=== PATIENT | male | born 1965 | race Caucasian/White ===

== ENCOUNTER 2017-12-12 16:11 | Emergency (ER) | payer OTHER ==
--- NOTE | 2017-12-12 16:56 | EDPHY ---
H & P Stated Complaint: SOB with cough sent from for full eval. Time Seen by Provider: 12/12/17 16:56 HPI/ROS: CHIEF COMPLAINT: Dyspnea HISTORY OF PRESENT ILLNESS: The patient presents to the ED with complaints of dyspnea and a dry nonproductive cough for the past several weeks. The patient has a remote history childhood asthma. He does use albuterol occasionally. He has been using at sporadically over the past several weeks with minimal improvement. The patient went to urgent care today requesting a steroid inhaler and had a EKG performed which demonstrated a right bundle branch block. The patient was referred to the ED for further evaluation. The patient denies any history of exertional chest pain. He has no complaints of pleuritic chest pain. He denies asymmetric calf pain or swelling. The patient has no additional acute medical complaints. REVIEW OF SYSTEMS: A comprehensive 10 point review of systems is otherwise negative aside from elements mentioned in the history of present illness. Source: Patient Exam Limitations: No limitations - Personal History Current Tetanus Diphtheria and Acellular Pertussis (TDAP): Yes - Medical/Surgical History Hx Asthma: Yes Hx Chronic Respiratory Disease: No Hx Diabetes: No Hx Cardiac Disease: No Hx Renal Disease: No Hx Cirrhosis: No Hx Alcoholism: No Hx HIV/AIDS: No Hx Splenectomy or Spleen Trauma: No Other PMH: asthma, htn, BPH. appendectomy - Social History Smoking Status: Never smoked - Physical Exam Exam: General Appearance: Alert, no distress Eyes: Pupils equal and round no pallor or injection ENT, Mouth: Mucous membranes moist Respiratory: There are no retractions, lungs are clear to auscultation Cardiovascular: Regular rate and rhythm Gastrointestinal: Abdomen is soft and nontender, no masses, bowel sounds normal Neurological: A&O, normal motor function, normal sensory exam, normal cranial nerves Skin: Warm and dry, no rashes Musculoskeletal: Neck is supple nontender Extremities: symmetrical, full range of motion Constitutional: Initial Vital Signs Temperature (C) 36.6 C 12/12/17 16:16 Heart Rate 93 12/12/17 16:16 Respiratory Rate 16 12/12/17 16:16 Blood Pressure 157/106 H 12/12/17 16:16 O2 Sat (%) 97 12/12/17 16:16 O2 Delivery Mode Room Air Allergies/Adverse Reactions: Sulfa (Sulfonamide Antibiotics) Allergy (Verified 12/12/17 16:15) Home Medications: Medication Instructions Recorded Albuterol 12/12/17 Fluticasone Hfa 220 Mcg [Flovent 1 puffs IH BID #1 mdi 12/12/17 220 MCG Hfa MDI (*)] Lisinopril 12/12/17 Tamsulosin HCl 12/12/17 Medical Decision Making - Diagnostics Imaging Results: Imaging Impressions Chest X-Ray 12/12/17 17:06 Impression: Mild central bronchitis; otherwise negative chest.. ED Course/Re-evaluation: Peak flow in the ED is 500. Predicted is 625. I reviewed his outpatient EKG which demonstrated a right bundle branch block with a rate of 90. There are no ischemic changes noted. The patient's chest x-ray demonstrates mild bronchitis without of focal infiltrate. The patient has a negative D-dimer in the emergency department which I feel adequately excludes pulmonary embolism in this low risk by Wells criteria patient. The patient's troponin is also normal. At this point time the patient will be prescribed a Flovent inhaler. It is certainly possible he is having an allergic bronchospasm. The patient will be referred to our intelligence specialist for further evaluation of any ongoing symptoms. He is advised to return to the emergency department for markedly worsening symptoms or other concerns. Differential Diagnosis: Differential diagnosis considered includes congestive heart failure, dehydration , arrhythmia, allergic bronchospasm, reactive airway disease, myocardial infarction, pulmonary embolism, pneumothorax, pneumonia - Data Points Laboratory Results: Laboratory Results 12/12/17 17:35 12/12/17 17:35 12/12/17 12/12/17 12/12/17 17:35 17:35 17:35 WBC 7.74 10^3/uL 10^3/uL (3.80-9.50) RBC 4.74 10^6/uL 10^6/uL (4.40-6.38) Hgb 15.1 g/dL g/dL (13.7-17.5) Hct 42.8 % % (40.0-51.0) MCV 90.3 fL fL (81.5-99.8) MCH 31.9 pg pg (27.9-34.1) MCHC 35.3 g/dL g/dL (32.4-36.7) RDW 12.5 % % (11.5-15.2) Plt Count 294 10^3/uL 10^3/uL (150-400) MPV 9.0 fL fL (8.7-11.7) Neut % (Auto) 62.7 % % (39.3-74.2) Lymph % (Auto) 26.0 % % (15.0-45.0) [place] % (Auto) 7.6 % % (4.5-13.0) Eos % (Auto) 2.1 % % (0.6-7.6) Baso % (Auto) 0.8 % % (0.3-1.7) Nucleat RBC Rel Count 0.0 % % (0.0-0.2) Absolute Neuts (auto) 4.86 10^3/uL 10^3/uL (1.70-6.50) Absolute Lymphs (auto) 2.01 10^3/uL 10^3/uL (1.00-3.00) Absolute Monos (auto) 0.59 10^3/uL 10^3/uL (0.30-0.80) Absolute Eos (auto) 0.16 10^3/uL 10^3/uL (0.03-0.40) Absolute Basos (auto) 0.06 10^3/uL 10^3/uL (0.02-0.10) Absolute Nucleated RBC 0.00 10^3/uL 10^3/uL (0-0.01) Immature Gran % 0.8 % % (0.0-1.1) Immature Gran # 0.06 10^3/uL 10^3/uL (0.00-0.10) D-Dimer 0.28 ug/mLFEU ug/mLFEU (0.00-0.50) Sodium 143 mEq/L mEq/L (135-145) Potassium 4.0 mEq/L mEq/L (3.3-5.0) Chloride 106 mEq/L mEq/L (97-110) Carbon Dioxide 26 mEq/l mEq/l (22-31) Anion Gap 11 mEq/L mEq/L (8-16) BUN 11 mg/dL mg/dL (7-23) Creatinine 0.9 mg/dL mg/dL (0.7-1.3) Estimated GFR > 60 Glucose 102 mg/dL H mg/dL (70-100) Calcium 9.7 mg/dL mg/dL (8.5-10.4) Troponin I < 0.012 ng/mL ng/mL (0.000-0.034) Departure - Departure Disposition: Home, Routine, Self-Care Clinical Impression: Dyspnea Condition: Good Instructions: Dyspnea (ED) Additional Instructions: 1. Please begin steroid inhaler as directed. 2. Please continue to use her albuterol inhaler up to every 2 hr as needed. 3. Please schedule a follow-up appointment with your primary care provider for a recheck within next week. 4. You have also been given the number of our intelligence specialist who would be happy to see you in consultation. Referrals: Arnold Alexander MD [Primary Care Provider] - As per Instructions Devyn Randhawa MD [Medical Doctor] - As per Instructions Prescriptions: Fluticasone Hfa 220 Mcg [Flovent 220 MCG Hfa MDI (*)] 1 puffs IH BID #1 mdi
[2017-12-12 17:53] LABS: PLATELET COUNT 294 10^3/uL (150-400)
[2017-12-12 18:41] VITALS: BP 180/96
== END 2017-12-12 18:50 | disposition home or self-care (01) ==
DX: R06.00 Dyspnea, unspecified (principal); I10 Essential (primary) hypertension; J45.909 Unspecified asthma, uncomplicated